=== PATIENT | male | born 1965 | race Caucasian/White ===

== ENCOUNTER 2023-08-12 09:16 | Emergency (ER) | payer MEDICAID, SELFPAY ==
[2023-08-12 09:20] VITALS: BP 139/87; PULSE 66; RESP 18; TEMP 37.2; O2SAT 100
--- NOTE | 2023-08-12 09:40 | W.ED.GENAD ---
HPI General Stated Complaint: Cellulitis JOHN: 4 Date/Time Provider Initiated Documentation: 08/12/23 09:29. HPI Narrative: This 58-year-old male presents with report of recurrent cellulitis to his nose. States he was on clindamycin a few weeks ago and had improvement but it is persistent. Denies fever or chills. Not currently prescribed antibiotic. Related Data Home Medications Medication Instructions Recorded Confirmed albuterol sulfate 90 mcg/actuation 2 inh inhalation Q6H PRN 08/12/23 08/12/23 aerosol inhaler (ProAir HFA) doxycycline monohydrate 100 mg 100 mg PO BID #20 tabs 08/12/23 tablet mupirocin 2 % topical ointment 1 applic topical BID #15 grams 08/12/23 naproxen 500 mg tablet 500 mg PO TID 08/12/23 08/12/23 pantoprazole 40 mg tablet,delayed 40 mg PO DAILY 08/12/23 08/12/23 release Previous Rx's Medication Instructions Recorded doxycycline monohydrate 100 mg 100 mg PO BID #20 tabs 08/12/23 tablet mupirocin 2 % topical ointment 1 applic topical BID #15 grams 08/12/23 Allergies Allergy/AdvReac Type Severity Reaction Status Date / Time No Known Allergies Allergy Unverified 08/12/23 09:24 PFSH All Active Problems (Updated 08/12/23 @ 09:45 by EMERITA Kaiser) Cellulitis (Acute) Social History Smoking/Tobacco Use Status: Current every day Smoking risk assessment performed?: Yes Alcohol Intake: current Alcohol Intake frequency: holidays/special occasions only Drug use: Daily Substance use type: marijuana Housing: house Do you feel safe at home: Yes Do you feel safe in your relationship?: Yes Course Vital Signs Vital signs: Vital Signs Temperature 37.2 C 08/12/23 09:20 Pulse 66 08/12/23 09:20 Respiratory Rate 18 08/12/23 09:20 Blood Pressure 139/87 08/12/23 09:20 Pulse Oximetry 100 08/12/23 09:20 Temperature 37.2 C 08/12/23 09:20 Temperature Source Temporal Artery Scan 08/12/23 09:20 Pulse 66 08/12/23 09:20 Respiratory Rate 18 08/12/23 09:20 Respiratory Effort Normal, Non-Labored 08/12/23 09:28 Blood Pressure 139/87 08/12/23 09:20 Blood Pressure Position Supine 08/12/23 09:20 Pulse Oximetry 100 08/12/23 09:20 Oxygen Delivery Method Room Air 08/12/23 09:20 Oxygen Flow Rate 0 08/12/23 09:20 Medical Decision Making Patient presents for cellulitis and induration to his nose which is recurrent in nature, history of polysubstance abuse, has not used for several years per patient. Placed on doxycycline and mupirocin ointment Swelling and induration noted to nose, no obvious drainable abscess, no maxillary involvement, no crepitus Afebrile and nontoxic Referred to establish care with primary care physician locally Return precautions reviewed and patient expressed understanding Okay Quality:SDOH Health Related Social Needs: No Data to Display Discharge Plan Disposition Patient Disposition: Home Discharge Details Clinical Impression: Cellulitis Primary Care Provider: Unknown,Unknown ED Provider: Kanika Rushing Home Meds and New Rx's Prescriptions: New doxycycline monohydrate 100 mg tablet 100 mg PO BID Qty: 20 0RF mupirocin 2 % ointment 1 applic topical BID Qty: 15 0RF Continued pantoprazole 40 mg tablet,delayed release (DR/EC) 40 mg PO DAILY naproxen 500 mg tablet 500 mg PO TID albuterol sulfate [ProAir HFA] 90 mcg/actuation HFA aerosol inhaler 2 inh inhalation Q6H PRN Discharge Instructions Instructions: Cellulitis (ED) Additional Instructions: Apply warm compresses several times daily to your nose Use the mupirocin ointment and coat your nostrils inside where the redness is with mupirocin 2-3 times a day with a Q-tip Take the antibiotic as prescribed Yogurt daily while on antibiotic To return with spreading redness, fever, worsening pain
--- NOTE | 2023-08-12 14:17 | NUR.NOTE ---
Referral Given to Care Managers to help Ot find a Primary Care Provider. He needs to be seen to follow up in regards his infection in his nose as soon as possible.
== END 2023-08-12 09:53 | disposition home or self-care (01) ==
PROVIDERS: Emergency Provider Physician Assistant
DX: L08.9 Local infection of the skin and subcutaneous tissue, unspecified (principal); J34.0 Abscess, furuncle and carbuncle of nose; Z72.0 Tobacco use; Z79.899 Other long term (current) drug therapy
CPT/HCPCS: 99283